=== PATIENT | female | born 1995 | race African-American/Black ===

== ENCOUNTER 2023-11-14 22:57 | Emergency (ER) | payer OTHER, MEDICAID, SELFPAY ==
--- NOTE | ~2023-11-14 | XR_ITS ---
EXAMINATION: XR chest 2V Exam Date/Time: 11/14/2023 23:41 LEARNING SOLUTIONS SPECIALIST HISTORY: LEFT SIDED CHEST PAIN . Comparison: None. RESULT: Lines, tubes, and devices: None. Lungs and pleura: Clear. Cardiomediastinal silhouette: Normal. Other: No acute osseous or upper abdominal finding. IMPRESSION: No acute cardiopulmonary process. Reviewed, dictated and finalized at location [facility]. NING SOLUTIONS SPECIALIST
--- NOTE | 2023-11-14 22:58 | ECG_ITS ---
Measurements Intervals [place] Rate: 55 P: 53 MI: 151 QRS: 41 QRSD: 93 T: 42 QT: 420 QTc: 403 Interpretive Statements SINUS BRADYCARDIA BASELINE WANDER- V4 BORDERLINE ECG NO PREVIOUS ECG AVAILABLE FOR COMPARISON Electronically Signed On 11-15-2023 6:33:02 NUTRITION DIRECTOR by Kumar Berumen D.O.
[2023-11-14 23:10] VITALS: BP 125/72; PULSE 57; RESP 14; TEMP 36.5; O2SAT 100
[2023-11-14 23:54] LABS: Basophils Percent Auto 0.4 % (0.2-1.2); Eosinophils Percent Auto 0.5 % (0-4.4); Hematocrit 30.7 % (37.0-47.0); Hemoglobin 9.3 g/dL (12.0-15.0); Immature Granulocyte Absolute 0.02 K/mm3 (0.00-0.031); Immature Granulocyte Percent A 0.4 % (0-0.5); Lymphocytes Absolute Auto 2.36 K/mm3 (0.9-3.2); Lymphocytes Percent Auto 42.1 % (18.3-44.2); Mean Corpuscular HGB Conc 30.3 g/dl (32-36); Mean Corpuscular Hemoglobin 22.9 pg (26-34); Mean Corpuscular Volume 75.4 fl (80-100); Mean Platelet Volume 10.1 fl (7.4-10.4); Monocytes Absolute Auto 0.4 K/mm3 (0.1-0.6); Neutrophils Absolute Auto 2.8 K/mm3 (1.3-6.7); Neutrophils Percent Auto 49.6 % (45.5-73.1); Platelet Count Result 369 k/mm3 (150-375); Red Blood Count 4.07 M/mm3 (4.2-5.4); Red Cell Distribution Width 17.2 % (11.5-14.5); White Blood Count 5.6 K/mm3 (4.5-10.0)
[2023-11-15] VITALS (46 sets, daily range): BP systolic 104–133; BP diastolic 65–91; PULSE 51–72; RESP 12–20; O2SAT 96–100
[2023-11-15 00:11] LABS: INR 1.1; Prothrombin Time 14.4 Seconds (11.1-14.7)
[2023-11-15 00:12] LABS: Partial Thromboplastin Time 31.2 SECONDS (22.3-36.8)
[2023-11-15 00:19] LABS: Alanine Aminotransferase 22 U/L (6-35); Albumin Level 4.2 g/dL (3.5-5.1); Alkaline Phosphatase 56 U/L (38-126); Anion Gap 6 mmol/L (8-16); Aspartate Amino Transferase 24 U/L (14-36); Bilirubin,Total 0.4 mg/dL (0.2-1.3); Blood Urea Nitrogen 10 mg/dL (7-17); Calcium 9.3 mg/dL (8.4-10.2); Carbon Dioxide 25 mmol/L (22-30); Chloride 105 mmol/L (98-107); Estimated CRCL calculation 132 ml/min; Estimated Glomerular Filt Rate > 60; Glucose 97 mg/dL (65-110); Lipase 29 U/L (23-300); Potassium 3.6 mmol/L (3.4-5.0); Sodium 136 mmol/L (137-145)
[2023-11-15 00:30] LABS: Troponin I < 0.012 ng/mL (0.000-0.034)
--- NOTE | 2023-11-15 01:09 | PC.NURSE ---
Patient states that positional changes made her dizzy and when she was taking deep breaths for lung sounds that that made her dizzy as well.
--- NOTE | 2023-11-15 01:39 | ED.CHESTPAIN ---
HPI - Chest Pain General Chief Complaint: Chest Pain <Olivia Mera PA-C - Last Filed: 11/15/23 03:28> Stated Complaint: chest pain <Olivia Mera PA-C - Last Filed: 11/15/23 03:28> Time Seen by Provider: 11/15/23 01:23 <Olivia Mera PA-C - Last Filed: 11/15/23 03:28> History of Present Illness HPI narrative: 28-year-old female reports to the emergency department for evaluation for chest pain. 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 States that the onset of symptoms it was associated with tingling in her left arm which has since resolved. Reports the chest pain is nonradiating. States it is associated with nausea and dyspnea. States her chest pain is worse with deep inspiration, otherwise denies aggravating or alleviating factors. She is also reporting lightheadedness when she stands up. Patient states she has a mild cough while at work but attributes this to ?poor air flow?. She denies abdominal pain, nausea vomiting, diarrhea. Denies exertional symptoms or associated diaphoresis, lower extremity edema, history of VTE, estrogen use, recent surgeries or hospitalization, hemoptysis. Denies prior medical history. States she smokes marijuana, otherwise no drug or alcohol use. She reports a family history of diabetes, no family cardiac history. States she was evaluated by her work's on staff nurse who gave her 325mg of aspirin prior to arrival. <Olivia Mera PA-C - Last Filed: 11/15/23 03:28> Related Data Allergies/Adverse Reactions: Allergies Allergy/AdvReac Type Severity Reaction Status Date / Time No Known Allergies Allergy Verified 11/15/23 01:04 <Olivia Mera PA-C - Last Filed: 11/15/23 03:28> Review of Systems Review of Systems: CONSTITUTIONAL: Denies fever, chills, or sweats. EYES: Denies visual changes, redness, or discharge. ENT: Denies rhinorrhea, congestion, sore throat, or otalgia. CARDIOVASCULAR: See HPI RESPIRATORY: Denies cough or dyspnea. GASTROINTESTINAL: Denies abdominal pain, nausea, vomiting, or diarrhea. GENITOURINARY: Denies dysuria or hematuria. SKIN: Denies rash or itching. MUSCULOSKELETAL: Denies back pain, joint pain, or myalgia. NEUROLOGIC: Denies headache, numbness, or weakness. PSYCHIATRIC: Denies anxiety or depression. <Olivia Mera PA-C - Last Filed: 11/15/23 03:28> Exam Narrative: GENERAL: Well-appearing, well-nourished, and in no acute distress. HEAD: Normocephalic, atraumatic. EYES: PERRLA and EOMI. ENT: Nares clear, no rhinorrhea or epistaxis. Mucous membranes moist. NECK: Supple. CHEST: Clear to auscultation. No respiratory distress. HEART: Regular rate and rhythm. No murmur heard. Normal peripheral pulses. ABDOMEN: Soft, nontender, nondistended, normal active bowel sounds. No guarding, rebound or rigidity. No CVA tenderness. EXTREMITIES: Normal range of motion. No edema. Negative Homans bilaterally. SKIN: Warm, dry, no rash. NEURO: No focal deficits. Alert and oriented x3 <Olivia Mera PA-C - Last Filed: 11/15/23 03:28> Course AUTOMATED CUTTING MACHINE OPERATOR/PA Physician Supervision For this patient encounter, I reviewed the AUTOMATED CUTTING MACHINE OPERATOR or PA documentation, treatment plan, and medical decision making and had [id number] time with this patient. I performed all aspects of the MDM as documented. <Jairo Liao MD - Last Filed: 11/15/23 05:32> Vital Signs Vital signs: Vital Signs Temperature 97.7 F 11/14/23 23:10 Pulse Rate 57 L 11/14/23 23:10 Respiratory Rate 14 11/14/23 23:10 Blood Pressure 125/72 11/14/23 23:10 Pulse Oximetry 100 11/14/23 23:10 Oxygen Delivery Room Air 11/14/23 23:10 Temperature 97.7 F 11/14/23 23:10 Pulse Rate 59 L 11/15/23 04:01 Respiratory Rate 15 11/15/23 04:01 Blood Pressure 120/76 11/15/23 04:01 Pulse Oximetry 100 11/15/23 04:01 Oxygen Delivery Room Air 11/15/23 01:07
[2023-11-15] MEDS: SODIUM CHLORIDE 0.9% IV 1,000 ML 999 ML IV CONT (01:53)
--- NOTE | 2023-11-15 01:58 | ECG_ITS ---
Measurements Intervals [place] Rate: 53 P: 58 [place]: 150 QRS: 48 QRSD: 93 T: 46 QT: 441 QTc: 414 Interpretive Statements SINUS BRADYCARDIA BORDERLINE ECG COMPARED TO ECG 11/14/2023 23:10:32 NO SIGNIFICANT CHANGES Electronically Signed On 11-15-2023 6:36:14 RECEIVING CLERK by Kumar Berumen D.O.
[2023-11-15 02:18] LABS: Troponin I 0.027 ng/mL (0.000-0.034)
[2023-11-15 02:20] LABS: SPREG INTERNAL CONTROL Positive; Serum Qual hCG Negative
--- NOTE | 2023-11-15 04:57 | ECG_ITS ---
Measurements Intervals [place] Rate: 60 P: 52 ID: 149 QRS: 41 QRSD: 90 T: 42 QT: 408 QTc: 409 Interpretive Statements SINUS RHYTHM BASELINE ARTIFACT- I, II, III, AVR, AVL, AVF NORMAL ECG COMPARED TO ECG 11/15/2023 02:02:38 SINUS RHYTHM NOW PRESENT Electronically Signed On 11-15-2023 6:39:03 MANAGER WORKERS COMPENSATION by Kumar Berumen D.O.
[2023-11-15 05:28] LABS: Troponin I 0.021 ng/mL (0.000-0.034)
== END 2023-11-15 05:42 | disposition home or self-care (01) ==
PROVIDERS: Physician Assistant; Emergency Provider Emergency Medicine
DX: R07.89 Other chest pain (principal)
CPT/HCPCS: 36415; 71046; 80053; 83690; 84484; 84703; 85025; 85610; 85730; 93005; 96360; 99284; J7030

== ENCOUNTER 2025-02-09 16:18 | Emergency (ER) | payer OTHER, SELFPAY ==
[2025-02-09 16:23] VITALS: BP 134/105; PULSE 85; RESP 16; TEMP 36.6; O2SAT 96
[2025-02-09] MEDS: RABIES VACCINE (RABAVERT) 2.5 UNITS VIAL IM (18:10)
[2025-02-09 18:12] VITALS: BP 120/86; PULSE 63; RESP 16; TEMP 36.8; O2SAT 100
[2025-02-09] MEDS: AMOXICILLIN/CLAVULANATE K 875-125 MG TAB 1 TABLET PO (18:12)
--- NOTE | 2025-02-09 18:15 | ED_ITS ---
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 Related Data Allergies Allergy/AdvReac Type Severity Reaction Status Date / Time No Known Allergies Allergy Verified 02/09/25 16:19 Review of Systems Review of Systems: All systems reviewed & are unremarkable except as noted in HPI and below Exam Narrative: EXAMINATION OF ORGAN SYSTEMS/BODY AREAS: Constitutional: Vital signs per nursing GENERAL:[No acute distress, non-toxic appearing.] HEAD: Normal with no signs of head trauma. EYES: EOMI, conjunctiva normal ENT: Hearing grossly intact LUNGS: Nonlabored breathing. HEART: [Regular rate and rhythm] ABD: [Soft], [nontender to palpation] EXT: Bruising and bite whatley to right arm with tiny punctate wounds, punctate wound right knee SKIN: See above NEURO: [Alert and oriented x 3. No gross focal sensory or strength deficits.] PSYCH: Normal affect Course Vital Signs Vital signs: Vital Signs Temperature 97.8 F 02/09/25 16:23 Pulse Rate 85 02/09/25 16:23 Respiratory Rate 16 02/09/25 16:23 Blood Pressure 134/105 H 02/09/25 16:23 Pulse Oximetry 96 02/09/25 16:23 Oxygen Delivery Room Air 02/09/25 16:23 Temperature 97.8 F 02/09/25 16:23 Pulse Rate 85 02/09/25 16:23 Respiratory Rate 16 02/09/25 16:23 Blood Pressure 134/105 H 02/09/25 16:23 Pulse Oximetry 96 02/09/25 16:23 Oxygen Delivery Room Air 02/09/25 16:23 MDM - Animal Bite MDM Narrative Medical decision making narrative: Patient presents after being bitten by unidentified dogs, though low risk for rabies in shared decision making with patient, will still go ahead with the course for rabies. Tetanus is up-to-date. Rabies immunoglobulin injected by myself, rabies vaccine given with course provided, along with Augmentin. Return precautions given. Patient agreeable to plan Discharge Plan Discharge Clinical Impression: Dog bite Patient Disposition: Home Condition: Stable Instructions: Antibiotic Form, Animal Bite (ED), Rabies (ED) Additional Instructions: Please follow up with your doctor; you can always return for any further issues. Take the antibiotics as prescribed. You will need to come back on 02/12, 02/16, and 02/23 for another dose of the rabies vaccine. Follow up with Vashti Liriano [phone] Patient Language: Hungarian Prescriptions: New amoxicillin-pot clavulanate 875-125 mg tablet 1 tablet PO Q12H Qty: 14 0RF Follow-up/Referrals: UNKNOWN,DOCTOR [Primary Care Provider] -
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
== END 2025-02-09 18:17 | disposition home or self-care (01) ==
LOC: ANHED 18:17
PROVIDERS: Emergency Provider Emergency Medicine
DX: S40.871A Other superficial bite of right upper arm, initial encounter (principal); S80.271A Other superficial bite of right knee, initial encounter; W54.0XXA Bitten by dog, initial encounter; Z29.14 Encounter for prophylactic rabies immune globulin
CPT/HCPCS: 90675; 96372; 99283; A9270